=== PATIENT | female | born 1940 | race Hispanic/Latino ===

== ENCOUNTER 2018-07-16 08:19 | Day surgery (SDC) | payer MEDICARE, MEDICAID ==
[2018-07-14 10:40] VITALS: BP 141/64
[2018-07-14 10:47] LABS: BASOPHILS % (AUTO) 0.4 % (0.0-5.0); EOSINOPHILS % (AUTO) 2.9 % (0.0-8.0); HEMATOCRIT 38.2 % (36-48); LYMPHOCYTES % (AUTO) 29.7 % (21.0-51.0); MEAN CORPUSCULAR HEMOGLOBIN 29.2 pg (27.0-33.0); MEAN CORPUSCULAR HGB CONC 33.2 g/dL (32.0-36.0); MEAN CORPUSCULAR VOLUME 87.9 fL (79-99); MONOCYTES % (AUTO) 6.5 % (3.0-13.0); NEUTROPHILS % (AUTO) 60.5 % (40.0-77.0); PLATELET COUNT (AUTO) 176 K/uL (130-400); RED BLOOD CELL COUNT(AUTO) 4.34 MIL/uL (4.00-5.50); RED CELL DISTRIBUTION WIDTH 13.7 % (11.0-15.5); WHITE BLOOD COUNT (AUTO) 6.2 K/uL (4.8-10.8)
[2018-07-14 11:04] LABS: CREATININE 0.8 mg/dL (0.5-1.5); POTASSIUM 4.3 mmol/L (3.5-5.1)
[2018-07-14 11:08] LABS: APPEARANCE,URINE Clear (CLEAR); BILIRUBIN,URINE Negative (NEGATIVE); COLOR,URINE Yellow (YELLOW); GLUCOSE, URINE (UA) Negative (NEGATIVE); KETONES,URINE Negative (NEGATIVE); LEUKOCYTE ESTERASE ,URINE Trace (NEGATIVE); NITRATE,URINE Negative (NEGATIVE); OCCULT BLOOD,URINE Negative (NEGATIVE); PROTEIN,URINE Negative (NEGATIVE); UROBILINOGEN,URINE 0.2 mg/dL (0.2-1.0)
[2018-07-14 11:33] LABS: BACTERIA,URINE Rare /HPF (None Seen); RBC,URINE 0-1 /HPF (0-1); SQUAMOUS EPITHELIAL CELL,UR Few /HPF (0-2); TRANSITIONAL EPI CELLS,URINE Rare /HPF (None Seen); WBC,URINE 0-1 /HPF (0-1)
[2018-07-14 11:36] LABS: INR 0.95 (0.85-1.15); PARTIAL THROMBOPLASTIN TIME 28.9 SEC (26.3-35.5)
[2018-07-16] VITALS (11 sets, daily range): BP systolic 102–166; BP diastolic 55–76
[~2018-07-16] VITALS: Ht 152.4 cm; Wt 73.9 kg
[~2018-07-16 08:19] MED LIST: ACET-66 PO; ASPI-1181 PO; CETERIZINE PO; ISOS60TA4 PO; METO100T14 PO; NEUPRO TD; PANT40TA25 PO; ROPI0.257 PO; SODIUM CHLORIDE 0.9% 1000ML 1,000 ML IV ONE; ZONI25CA3 PO; [UNRECOGNIZED DRUG - OTHER] PO
--- NOTE | 2018-07-16 08:30 | NUR ---
BOTH PATIENT AND FAMILY RECEIVED INSTRUCTIONS ON NEEDING TO BE ON BED REST POST PROCEDURE TO PREVENT BLEEDING FROM PUNCTURE SITE. BOTH VERBALIZED UNDERSTANDING AND AGREED TO ALL AND BE COMPLIANT.
[2018-07-16] MEDS ORDERED: BIVALIRUDIN 250 MG/VIAL IV ONE (09:10)
[2018-07-16] MEDS ORDERED: NITROGLYCERIN 5 MG/ML 10 ML VIAL IV ONE (09:11)
[2018-07-16] MEDS ORDERED: IOHEXOL 350 MG/ML 100ML INFUS..BTL IV ONE (09:11)
[2018-07-16] MEDS ORDERED: IOHEXOL-350 50ML VIAL IV ONE (09:11)
[2018-07-16] MEDS ORDERED: LIDOCAINE HCL 2% 20ML ONE (09:11)
[2018-07-16] MEDS ORDERED: ZONI25CA3 PO (09:12)
[2018-07-16] MEDS ORDERED: FENTANYL CITRATE PF 50 MCG/1 ML 2ML VIAL ONE (09:45)
[2018-07-16] MEDS ORDERED: MIDAZOLAM HCL 1 MG/ML 2ML VIAL ONE (09:45)
[2018-07-16] MEDS ORDERED: SODIUM CHLORIDE 0.9% 1000ML 1,000 ML IV SCH (10:02)
[2018-07-16] MEDS ORDERED: HYDRALAZINE HCL 20 MG/ML VIAL IV PRN (10:15)
[2018-07-16] MEDS ORDERED: NITROGLYCERIN 0.4 MG SL TAB SL PRN (10:15)
[2018-07-16] MEDS ORDERED: METOPROLOL TARTRATE 1 MG/ML 5ML VIAL IV PRN (10:15)
--- NOTE | 2018-07-16 10:25 | NUR ---
PATIENT RETURNED FROM [facility], RIGHT GROIN SHOWS NO ACTIVE BLEEDING OR HEMATOMA, BOTH PATIENT AND FAMILY RECEIVED TEACHING ON IMPORTANCE ON BEING ON BEDREST. NO CHEST PAIN NO SOB
[2018-07-16] MEDS ORDERED: INSULIN HUMULIN R 100 UNIT/ML 3ML SQ SCH (11:30)
--- NOTE | 2018-07-16 11:30 | NUR ---
PATIENT STATES FEELING FINE IN NO DISTRESS, PATIENT DENIES SOB OR CHEST PAIN.CALL [facility] WITHIN REACH AND PATIENT ENCOURAGED TO CALL IF NEEDED.
--- NOTE | 2018-07-16 14:30 | NUR ---
PATIENT DISCHARGED IN NO DISTRESS OF DISCOMFORT, RIGHT GROIN SHOWS NO ACTIVE BLEEDING OR HEMATOMA.
== END 2018-07-16 14:25 | disposition home or self-care (01) ==
LOC: DAH 08:19
PROVIDERS: ATTEND Internal Medicine Cardiovascular Disease
DX: I25.118 Atherosclerotic heart disease of native coronary artery with other forms of angina pectoris (principal); J44.9 Chronic obstructive pulmonary disease, unspecified; R07.9 Chest pain, unspecified; Z95.5 Presence of coronary angioplasty implant and graft; I21.3 ST elevation (STEMI) myocardial infarction of unspecified site; E78.5 Hyperlipidemia, unspecified; I11.0 Hypertensive heart disease with heart failure; I50.32 Chronic diastolic (congestive) heart failure; G25.81 Restless legs syndrome; G20 Parkinson's disease; M19.90 Unspecified osteoarthritis, unspecified site; Z68.31 Body mass index [BMI] 31.0-31.9, adult; Z79.899 Other long term (current) drug therapy; Z98.890 Other specified postprocedural states; Z88.0 Allergy status to penicillin; R00.1 Bradycardia, unspecified
CPT/HCPCS: 36415; 71045; 80048; 81001; 85025; 85610; 85730; 93005; 93458; A4606; C1894 ×2; J1644; J2250; J3010; J3490 ×2; J7030; Q9965; Q9967 ×2; 99156; 99157; J0583